=== PATIENT | male | born 1965 | race Two or more races ===

== ENCOUNTER 2017-03-11 10:14 | Emergency (ER) | payer MEDICARE ==
[~2017-03-11] VITALS: Ht 172.7 cm; Wt 74.8 kg
[2017-03-11] MEDS ORDERED: fentaNYL 100 mcg/2 mL IV ONE (10:45)
[2017-03-11] MEDS ORDERED: Ketorolac 30mg Inj IV ONE (10:45)
[2017-03-11] MEDS ORDERED: ROBAXIN500 MG PO (12:20)
[2017-03-11] MEDS ORDERED: TRAMADOL HCL50 MG ORAL (12:20)
[2017-03-11] MEDS ORDERED: IBUPROFEN600 MG ORAL (12:20)
[2017-03-11 12:29] VITALS: BP 134/80
--- NOTE | 2017-03-11 12:36 | Emergency Room Report ---
History of Present Illness General Chief Complaint: Neck Pain Source: Patient Present Illness HPI The patient presents with severe neck spasm which began this morning. He was making coffee at the time. Non known trauma. No sore throat. Radiates to L chest and in back. No dyspnea. No fevers, NVD. No numbness L arm. Anxious. No risk factors for CAD. Has chronic lower back pain. ON gabapentin. Due to fly to [place] tomorrow. Allergies: Coded Allergies: No Known Allergies (Unverified , 03/11/17) Patient History Past Medical History: see triage record, other - chronic back pain Social History: Denies: smoking Social History Narrative travel to [place] Reviewed Nursing Documentation: PMH: Agreed, PSxH: Agreed Review of Systems All Other Systems: negative except mentioned in HPI Physical Exam Vital Signs Date Time Temp Pulse Resp B/P Pulse Ox O2 Delivery O2 Flow Rate FiO2 03/11/17 10:22 98.1 82 17 127/91 100 Room Air Sp02 EP Interpretation: reviewed, normal General Appearance: well appearing, GCS 15, mild distress Head: normocephalic, atraumatic Eyes: bilateral eye normal inspection ENT: moist mucus membranes Neck: no bony tend, limited range of motion, tender lateral - L side Respiratory: lungs clear, normal breath sounds, other - trapezius tenderness Cardiovascular #1: regular rate, rhythm Cardiovascular #2: 2+ radial (R) Gastrointestinal: normal inspection, normal bowel sounds, non tender, no mass, non-distended Musculoskeletal: back normal, gait/station normal, normal range of motion Neurologic: alert, oriented x3, motor strength/tone normal, DTRs symmetric, sensory intact, cerebellar normal, normal gait, speech normal Psychiatric: anxious - in pain Skin: normal inspection, warm/dry Medical Decision Making Diagnostic Impression: Primary Impression: Neck pain ER Course Patient presents with severe L neck and chest pain. DDx: cardiac cause, torticollis, strain, muscle spasm. No risk factors for dissection. In significant pain. Needs xrays, EKG, CXR and analgesia. EKG and CXR negative. C spine with reversal of curvature. Improved with treatment. C collar applied with good position and improvement. Patient stable for outpatient observation and treatment. EKG Diagnostic Results Rate: normal Rhythm: NSR ST Segments: no acute changes Rhythm Strip Diag. Results EP Interpretation: yes Rhythm: NSR, no PVC's, no ectopy Chest X-Ray Diagnostic Results EP Interpretation: Yes Findings: no consolidation, no effusion, no pneumothorax, no acute cardiopulmonary disease Number of Views: 1 Other X-Ray Diagnostic Results Other X-Ray Diagnostic Results : X-Ray Ordered: c spine EP Interpretation: Yes Findings: no fractures, no dislocation, no soft tissue swelling, other - straightening Number of Views: 3 Last Vital Signs Date Time Temp Pulse Resp B/P Pulse Ox O2 Delivery O2 Flow Rate FiO2 03/11/17 12:29 98.0 72 16 134/80 94 Room Air Status: improved Disposition: HOME, SELF-CARE Condition: Improved Scripts Methocarbamol* (ROBAXIN*) 500 Mg Tablet 500 MG PO TID, #10 TAB 0 Refills Prov: Marlo Obrien M.D. 03/11/17 Tramadol Hcl* (ULTRAM*) 50 Mg Tablet 50 MG ORAL Q6H Y for For Pain, #8 TAB 0 Refills Prov: Marlo Obrien M.D. 03/11/17 Ibuprofen* (MOTRIN*) 600 Mg Tablet 600 MG ORAL Q6H Y for For Pain, #20 TAB Prov: Marlo Obrien M.D. 03/11/17 Referrals: NON PHYSICIAN (PCP) Patient Instructions: Muscle Cramps and Spasms, Acute Torticollis Additional Instructions: Heat, rest and massage. OK to take tylenol. Physical therapy can help. See your doctor soon. Marlo Obrien M.D. March 11, 2017 12:36
--- NOTE | 2017-03-12 10:51 | Diagnostic Imaging Report ---
Indication: PAIN Technique: 3 views of the cervical spine Comparison: none Findings: Bony alignment is normal. Vertebral body heights are preserved. Disc spaces are preserved. No acute fractures. No dislocations. No prevertebral soft tissue swelling. Impression: Negative
--- NOTE | 2017-03-12 10:51 | Diagnostic Imaging Report ---
Indication: Chest pain Technique: One view of the chest Comparison: none Findings: Lungs and pleural spaces are clear. Heart size is normal. Impression: No acute process
--- NOTE | 2017-03-12 16:52 | Cardiology Report ---
APPROVED REPORT EKG Measurement Heart [id number] Normal sinus rhythm Possible Left atrial enlargement Left ventricular hypertrophy Abnormal ECG
== END 2017-03-11 12:35 | disposition home or self-care (01) ==
LOC: EMR 10:50
DX: M54.2 Cervicalgia (principal); M62.838 Other muscle spasm; R07.9 Chest pain, unspecified; G89.29 Other chronic pain; M54.5 Low back pain
CPT/HCPCS: 71010; 72040; 93005; 96374; 96375; 99284; J1885; J2405; J3010